=== PATIENT | male | born 1940 | race Caucasian/White ===

== ENCOUNTER 2020-05-23 14:29 | Inpatient (IN) | payer MEDICARE, OTHER ==
[~2020-05-23] VITALS: Ht 177.8 cm; Wt 104.1 kg
[2020-05-23] MEDS ORDERED: ASPIRIN 325 MG TABLET ONE (15:37)
[2020-05-23] MEDS ORDERED: CEFTRIAXONE SODIUM 1 GM ONE (15:37)
[2020-05-23] MEDS ORDERED: ACETAMINOPHEN 325 MG TAB ONE (15:38)
[2020-05-23 15:54] LABS: BASOPHILS % (AUTO) 0.2 % (0.0-5.0); EOSINOPHILS % (AUTO) 2.8 % (0.0-8.0); HEMATOCRIT 39.9 % (42-54); LYMPHOCYTES % (AUTO) 16.8 % (21.0-51.0); MEAN CORPUSCULAR HEMOGLOBIN 24.7 pg (27.0-33.0); MEAN CORPUSCULAR HGB CONC 31.3 g/dL (32.0-36.0); MEAN CORPUSCULAR VOLUME 78.7 fL (79-99); MONOCYTES % (AUTO) 5.5 % (3.0-13.0); NEUTROPHILS % (AUTO) 74.1 % (40.0-77.0); PLATELET COUNT (AUTO) 301 K/uL (130-400); RED BLOOD CELL COUNT(AUTO) 5.07 MIL/uL (4.50-6.20); RED CELL DISTRIBUTION WIDTH 14.3 % (11.0-15.5)
[2020-05-23 16:07] LABS: CREATININE 1.4 mg/dL (0.5-1.5); POTASSIUM 3.3 mmol/L (3.5-5.1)
[2020-05-23 16:11] LABS: BILIRUBIN,TOTAL 0.5 mg/dL (0.2-1.0); TOTAL PROTEIN, SERUM 7.1 g/dL (6.0-8.3)
[2020-05-23 16:13] LABS: B-TYPE NATRIURETIC PEPTIDE 33 pg/mL (0-100)
[2020-05-23 16:34] LABS: RAPID GROUP A STREP NEGATIVE (NEGATIVE)
[2020-05-23 16:36] LABS: APPEARANCE,URINE Clear (CLEAR); BILIRUBIN,URINE Negative (NEGATIVE); COLOR,URINE Yellow (YELLOW); GLUCOSE, URINE (UA) Negative (NEGATIVE); KETONES,URINE Negative (NEGATIVE); LEUKOCYTE ESTERASE ,URINE Negative (NEGATIVE); NITRATE,URINE Negative (NEGATIVE); OCCULT BLOOD,URINE Negative (NEGATIVE); PROTEIN,URINE Negative (NEGATIVE)
[2020-05-23 18:35] LABS: ABG BASE EXCESS -1.3 mmol/L (-2.0-3.0); ABG HCO3 22.8 mmol/L (21.0-28.0); ABG OXYGEN SATURATION 91.5 % (95.0-99.0); ABG PCO2 36 mmHg (35-48)
[2020-05-23] MEDS ORDERED: CEFTRIAXONE SODIUM 1 GM IV SCH (19:45)
[2020-05-23] MEDS ORDERED: ACETAMINOPHEN 325 MG TAB PO PRN ×2 (19:45)
[2020-05-23] MEDS ORDERED: MORPHINE SULFATE 2 MG/ML 1ML SYG IV PRN (19:45)
[2020-05-23] MEDS ORDERED: AZITHROMYCIN 500MG+NS 250ML 250 ML IV SCH (19:45)
[2020-05-23] MEDS ORDERED: ONDANSETRON HCL 4 MG/2 ML VIAL IV PRN (19:45)
[2020-05-23] MEDS ORDERED: LACTULOSE 20 GM/30 ML UDCUP PO PRN (19:45)
[2020-05-23] MEDS ORDERED: IOHEXOL-350 50ML VIAL IV ONE (19:56)
[2020-05-23] MEDS ORDERED: FAMOTIDINE 20MG TAB 20 MG TAB ONE (20:40)
[2020-05-23] MEDS ORDERED: AZITHROMYCIN 500MG+NS 250ML 250 ML IV ONE (20:41)
[2020-05-23] MEDS ORDERED: POTASSIUM CHLORIDE 20 MEQ ERTAB PO SCH (21:15)
[2020-05-23] MEDS ORDERED: POTASSIUM CHLORIDE 20 MEQ ERTAB PO ONE (21:35)
[2020-05-23 23:49] LABS: INR 1.01 (0.85-1.15); PARTIAL THROMBOPLASTIN TIME 29.9 SEC (26.3-35.5); PROTHROMBIN TIME 10.9 SEC (9.6-11.6)
[2020-05-24] MEDS ORDERED: HEPARIN 25000 UNITS/250 ML D5W 250 ML IV SCH (00:45)
[2020-05-24] MEDS ORDERED: HEPARIN 25000 UNITS/250 ML D5W 250 ML IV ONE ×2 (02:10→16:06)
[2020-05-24 05:25] LABS: BASOPHILS % (AUTO) 0.2 % (0.0-5.0); EOSINOPHILS % (AUTO) 6.7 % (0.0-8.0); HEMATOCRIT 37.7 % (42-54); LYMPHOCYTES % (AUTO) 24.5 % (21.0-51.0); MEAN CORPUSCULAR HEMOGLOBIN 24.2 pg (27.0-33.0); MEAN CORPUSCULAR HGB CONC 30.2 g/dL (32.0-36.0); MEAN CORPUSCULAR VOLUME 79.9 fL (79-99); MONOCYTES % (AUTO) 6.8 % (3.0-13.0); NEUTROPHILS % (AUTO) 61.2 % (40.0-77.0); PLATELET COUNT (AUTO) 318 K/uL (130-400); RED BLOOD CELL COUNT(AUTO) 4.72 MIL/uL (4.50-6.20); RED CELL DISTRIBUTION WIDTH 14.2 % (11.0-15.5); WHITE BLOOD COUNT (AUTO) 10.2 K/uL (4.8-10.8)
[2020-05-24 05:38] LABS: CREATININE 1.4 mg/dL (0.5-1.5); POTASSIUM 4.1 mmol/L (3.5-5.1)
[2020-05-24] MEDS: FAMOTIDINE 20MG TAB 20 MG TAB PO SCH (09:00)
[2020-05-24] MEDS ORDERED: ENOXAPARIN SODIUM 40 MG/0.4 ML SYRINGE SQ SCH (09:00)
[2020-05-24 09:17] LABS: PARTIAL THROMBOPLASTIN TIME 46.5 SEC (26.3-35.5); PROTHROMBIN TIME 10.8 SEC (9.6-11.6)
[2020-05-24 15:24] LABS: INR 0.96 (0.85-1.15); PROTHROMBIN TIME 10.4 SEC (9.6-11.6)
[2020-05-24 16:06] LABS: PARTIAL THROMBOPLASTIN TIME 60.8 SEC (26.3-35.5)
[2020-05-24 16:30] VITALS: BP 124/77
--- NOTE | 2020-05-24 16:34 | NUR ---
ARRIVAL TO FLOOR PT IS AAOX3 DENIES CP DENIES SOB DENIES NV NO COMPLAINTS, BREATHING PATTERN IS EVEN AND UNLABORED. ARRIVED WITH ORDERS. PT ARRIVED TO ROOM ON HEPARIN GTT FROM ER. CALL LIGHT WITHIN REACH.
--- NOTE | 2020-05-24 18:00 | NUR ---
STATUS RESTING IN BED NO COMPLAINTS. REMAINS ON HEPARIN GTT.
[2020-05-24 19:41] VITALS: BP 150/83
[2020-05-24 21:18] LABS: INR 0.95 (0.85-1.15); PARTIAL THROMBOPLASTIN TIME 59.2 SEC (26.3-35.5); PROTHROMBIN TIME 10.3 SEC (9.6-11.6)
[2020-05-24 23:53] VITALS: BP 133/84
[2020-05-25 03:55] VITALS: BP 129/73
[2020-05-25 05:55] LABS: BASOPHILS % (AUTO) 0.3 % (0.0-5.0); EOSINOPHILS % (AUTO) 8.5 % (0.0-8.0); HEMATOCRIT 36.5 % (42-54); LYMPHOCYTES % (AUTO) 29.5 % (21.0-51.0); MEAN CORPUSCULAR HEMOGLOBIN 24.3 pg (27.0-33.0); MEAN CORPUSCULAR HGB CONC 30.4 g/dL (32.0-36.0); MEAN CORPUSCULAR VOLUME 79.9 fL (79-99); MONOCYTES % (AUTO) 6.4 % (3.0-13.0); NEUTROPHILS % (AUTO) 54.6 % (40.0-77.0); PLATELET COUNT (AUTO) 414 K/uL (130-400); RED BLOOD CELL COUNT(AUTO) 4.57 MIL/uL (4.50-6.20); RED CELL DISTRIBUTION WIDTH 14.5 % (11.0-15.5); WHITE BLOOD COUNT (AUTO) 8.9 K/uL (4.8-10.8)
[2020-05-25 06:19] LABS: CREATININE 1.4 mg/dL (0.5-1.5); POTASSIUM 3.8 mmol/L (3.5-5.1)
[2020-05-25 08:55] VITALS: BP 141/75
[2020-05-25] MEDS ORDERED: CHLO25TA3 PO (10:22)
[2020-05-25] MEDS ORDERED: LISI-617 PO (10:23)
[2020-05-25] MEDS: FAMOTIDINE 20MG TAB 20 MG TAB PO SCH (10:45)
[2020-05-25 12:36] VITALS: BP 139/74
[2020-05-25] MEDS ORDERED: APIXABAN 5 MG TABLET PO ONE (12:53)
--- NOTE | 2020-05-25 15:35 | NUR ---
DC PLAN VISITED WITH PATIENT. PATIENT LIVES WITH SPOUSE. INDEPENDENT ABLE TO PERFORM ADL'S. PATIENT HAS NO SERVICES OR DME'S. FEELS SAFE TO RETURN HOME. FEELS SAFE TO RETURN HOME. Addendum: 05/25/20 at 1540 by ZEYAD RIOS RN CM Amended: Links added.
--- NOTE | 2020-05-26 11:53 | NUR ---
Transitional Care - Post Discharge Note Spoke with patient at number listed. As per MR Aby, he is 'doing a lot better then when I went in." [facility], is aware of appointment with Dr Conley, assures me he is making an appointment with Dr Blackmon, and is taking his home medications as ordered. Addendum: 05/26/20 at 1159 by PABLITO MORALES Amended: Links added.
== END 2020-05-25 15:50 | disposition home or self-care (01) | DRG 175 ==
LOC: EDH 14:29 → EDHIP 19:41 → 3BH 05-24 00:05 → EDHIP 05-24 00:48 → 4DH 05-24 16:30 → 3DH 05-25 06:49
PROVIDERS: ADMIT Internal Medicine; ATTEND Internal Medicine
DX: I26.99 Other pulmonary embolism without acute cor pulmonale (principal); J96.01 Acute respiratory failure with hypoxia; D50.9 Iron deficiency anemia, unspecified; E88.09 Other disorders of plasma-protein metabolism, not elsewhere classified; K76.89 Other specified diseases of liver; M47.9 Spondylosis, unspecified; N18.30 Chronic kidney disease, stage 3 unspecified; I12.9 Hypertensive chronic kidney disease with stage 1 through stage 4 chronic kidney disease, or unspecified chronic kidney disease; N28.1 Cyst of kidney, acquired; Z20.828 Contact with and (suspected) exposure to other viral communicable diseases; R91.1 Solitary pulmonary nodule; Z79.01 Long term (current) use of anticoagulants
CPT/HCPCS: 36415; 36600; 71045; 71270; 80048; 80053; 81003; 82550; 82803; 83605; 83880; 84484; 85025; 85378; 85610; 85730; 87040; 87426; 87804; 87880; 93005; 93970; 99291; G0378; J0456; J0696; J1644; Q9967; U0003

== ENCOUNTER 2021-07-05 11:02 | Emergency (ER) | payer OTHER ==
[~2021-07-05] VITALS: Ht 177.8 cm; Wt 99.8 kg
[~2021-07-05 11:02] MED LIST: CHLO25TA3 PO; LISI5TAB21 PO
[2021-07-05] MEDS ORDERED: MORPHINE 2 MG SYG IVP SCH (12:30)
[2021-07-05] MEDS ORDERED: ONDANSETRON 4MG INJ IVP SCH (12:30)
[2021-07-05 12:50] VITALS: BP 127/75
[2021-07-05 12:50] LABS: BASOPHILS % (AUTO) 0.2 % (0.0-5.0); EOSINOPHILS % (AUTO) 0.3 % (0.0-8.0); LYMPHOCYTES % (AUTO) 9.9 % (21.0-51.0); MEAN CORPUSCULAR HEMOGLOBIN 23.2 pg (27.0-33.0); MEAN CORPUSCULAR HGB CONC 29.3 g/dL (32.0-36.0); MEAN CORPUSCULAR VOLUME 79.3 fL (79-99); MONOCYTES % (AUTO) 4.3 % (3.0-13.0); NEUTROPHILS % (AUTO) 84.6 % (40.0-77.0); PLATELET COUNT (AUTO) 686 K/uL (130-400); RED BLOOD CELL COUNT(AUTO) 5.42 MIL/uL (4.50-6.20); RED CELL DISTRIBUTION WIDTH 15.6 % (11.0-15.5); WHITE BLOOD COUNT (AUTO) 13.4 K/uL (4.8-10.8)
[2021-07-05 12:57] LABS: APPEARANCE,URINE Clear (CLEAR); BILIRUBIN,URINE Negative (NEGATIVE); COLOR,URINE Yellow (YELLOW); GLUCOSE, URINE (UA) Negative (NEGATIVE); KETONES,URINE Negative (NEGATIVE); LEUKOCYTE ESTERASE ,URINE Negative (NEGATIVE); NITRATE,URINE Negative (NEGATIVE); OCCULT BLOOD,URINE Negative (NEGATIVE); PH,URINE 6.5 (5.0-8.0); PROTEIN,URINE Trace mg/dL (NEGATIVE)
[2021-07-05 13:01] LABS: CREATININE 1.5 mg/dL (0.5-1.5); POTASSIUM 4.1 mmol/L (3.5-5.1)
[2021-07-05] MEDS ORDERED: ACETAMINOPHEN 500 MG TABLET ONE (13:08)
[2021-07-05 13:10] LABS: BACTERIA,URINE Rare /HPF (None Seen); RBC,URINE 0-1 /HPF (0-1); SQUAMOUS EPITHELIAL CELL,UR Rare /HPF (0-2); WBC,URINE 0-1 /HPF (0-1)
[2021-07-05 13:11] LABS: ALBUMIN 3.4 g/dL (3.5-5.0); BILIRUBIN,TOTAL 0.3 mg/dL (0.2-1.0)
[2021-07-05] MEDS ORDERED: ACETAMINOPHEN 500 MG TABLET PO ONE (14:00)
[2021-07-05] MEDS ORDERED: DICY20TA2 PO (14:25)
== END 2021-07-05 14:43 | disposition home or self-care (01) ==
LOC: EDH 11:02
DX: U07.1 COVID-19 (principal); N20.0 Calculus of kidney; K57.30 Diverticulosis of large intestine without perforation or abscess without bleeding; E66.9 Obesity, unspecified; Z90.49 Acquired absence of other specified parts of digestive tract; Z79.899 Other long term (current) drug therapy; Z68.31 Body mass index [BMI] 31.0-31.9, adult
CPT/HCPCS: 36415; 71045; 74176; 80053; 81001; 83690; 84484; 85025; 87635; 93005; 96374; 96375; 99285; C9803; J2405